=== PATIENT | male | born 1995 | race Caucasian/White ===

== ENCOUNTER 2020-03-11 05:46 | Emergency (ER) | payer BC, SELFPAY ==
[2020-03-11 05:52] VITALS: BP 131/88; PULSE 77; RESP 19; TEMP 36.8; O2SAT 100
--- NOTE | 2020-03-11 06:32 | PC.NURSE ---
PT REPORTS THAT HE WENT OUTSIDE TO GET INSURANCE CARD OUT OF CAR, PT NEVER RETURNED TO ROOM.
== END 2020-03-11 06:34 | disposition left against medical advice (07) ==
LOC: ANHED 06:23
PROVIDERS: Emergency Provider Family Medicine
DX: Z53.21 Procedure and treatment not carried out due to patient leaving prior to being seen by health care provider (principal)
CPT/HCPCS: 99199

== ENCOUNTER 2020-04-14 00:30 | Emergency (ER) | payer BC, SELFPAY ==
[2020-04-14 00:31] VITALS: BP 151/106; PULSE 80; RESP 16; TEMP 36.1; O2SAT 100
--- NOTE | 2020-04-14 02:05 | ED.WOUNDLAC ---
HPI - Wound/Laceration General Chief Complaint: Wound/Laceration Stated Complaint: laceration on left flank Time Seen by Provider: 04/14/20 01:22 Source: patient Mode of arrival: ambulatory Limitations: no limitations History of Present Illness HPI narrative: Ulysses is a 24-year-old male presents with left leg laceration after being cut while trying to fix a car mirror. No reports of any loss of consciousness, no vomiting, no diarrhea. Patient is unsure when his last tetanus shot was. He reports he has been otherwise fine. Place: home Patient tetanus UTD: No Context: accidental Associated symptoms: none Treatments prior to arrival: bandage Related Data Home Medications Medication Instructions Recorded Confirmed amlodipine 03/11/20 amlodipine [Norvasc] 03/11/20 aspirin 81 mg PO DAILY 03/11/20 03/11/20 balsalazide [Colazal] 750 mg PO TID 03/11/20 03/11/20 clopidogrel [Plavix] 03/11/20 docusate sodium [Colace] PO 03/11/20 esomeprazole magnesium [Nexium] mg 03/11/20 fluvastatin [Lescol XL] mg PO 03/11/20 furosemide [Lasix] 40 mg PO DAILY 03/11/20 03/11/20 insulin glargine [Lantus U-100 SUBCUT 03/11/20 Insulin] insulin lispro [Humalog U-100 03/11/20 Insulin] oxycodone 03/11/20 potassium chloride [Klor-Con 10] meq PO 03/11/20 Allergies Allergy/AdvReac Type Severity Reaction Status Date / Time No Known Allergies Allergy Unverified 11/29/19 17:53 Review of Systems Review of Systems: All systems reviewed & are unremarkable except as noted in HPI and below PMFSH Social History Social History Tobacco type: cigars Gender identity (if verbalized by the patient): Male Exam Const: General: cooperative and healthy appearing Nutritional Appearance: average body habitus Orientation/consciousness: oriented to person Limitations: no limitations HENMT: Head: normal to inspection and No palpable skull fracture present Ears: hearing grossly normal bilaterally General nose exam: Normal external nose present and Normal nares present Face and sinus: normal facial exam Mouth: Yes Normal oral and palatal mucosa present Eyes: General: appearance normal, both eyes and all related structures Alignment and Position: alignment normal EOM: EOMs intact bilaterally Neck: Neck: normal visual inspection and full ROM Chest: Chest palpation & inspection: normal inspection of the chest and normal palpation of entire chest wall Resp: Effort & Inspection: normal respiratory effort and able to speak in complete sentences Cardio: Jugular venous distension: no JVD GI: Inspection: normal to inspection and other (3 cm linear flank laceration on the left side) Percussion: Yes normal to percussion Auscultation: normoactive bowel sounds Rectal Exam: deferred Back/Spine/Pelvis: Back: no CVA tenderness Course Vital Signs Vital signs: Vital Signs Temperature 96.9 F L 04/14/20 00:31 Pulse Rate 80 04/14/20 00:31 Respiratory Rate 16 04/14/20 00:31 Blood Pressure 151/106 H 04/14/20 00:31 Pulse Oximetry 100 04/14/20 00:31 Temperature 96.9 F L 04/14/20 00:31 Pulse Rate 80 04/14/20 00:31 Respiratory Rate 16 04/14/20 00:31 Blood Pressure 151/106 H 04/14/20 00:31 Pulse Oximetry 100 04/14/20 00:31 Procedures Laceration Laceration 1: Date: 04/14/20 Time: 02:10 Site: other (Left flank) Side (If applicable): left Size (cm): 3 Description: linear Depth: simple, single layer Local Anesthetic: lidocaine 1% Amount of anesthesia used (mL): 5 Pre-repair: wound explored, irrigated and irrigated extensively ====== Skin Level ====== Skin layer closed with: prolene Size (cm): 4-0 Number of sutures: 5 Technique: simple, interrupted ====== Subcutaneous Layer ====== ====== Muscle Layer ====== ====== Tendon Layer ======
[2020-04-14] MEDS: TETANUS/DIPHTHERIA TOXOIDS ADSORB 0.5 ML VIAL (*BKC) IM (02:30)
== END 2020-04-14 02:41 | disposition home or self-care (01) ==
PROVIDERS: Emergency Provider Emergency Medicine Pediatric Emergency Medicine
DX: S31.119A Laceration without foreign body of abdominal wall, unspecified quadrant without penetration into peritoneal cavity, initial encounter (principal); F17.290 Nicotine dependence, other tobacco product, uncomplicated; Z23 Encounter for immunization; Z79.4 Long term (current) use of insulin; Z79.02 Long term (current) use of antithrombotics/antiplatelets
CPT/HCPCS: 12002; 90471; 90714; 99283